=== PATIENT | female | born 1950 | race Caucasian/White ===

== ENCOUNTER 2017-07-19 16:15 | Emergency (ER) | payer OTHER ==
[2017-07-19 17:56] VITALS: BP 123/64; PULSE 71; TEMP 97.4; BMI 26.5
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
[2017-07-19] MEDS ORDERED: SODIUM CHLORIDE 0.9% 1000 ML INFUS.BAG IV ONE (18:29)
[2017-07-19] MEDS ORDERED: diazePAM 5 MG TABLET PO ONE (18:29)
[2017-07-19] MEDS ORDERED: ACETAMINOPHEN 1000 MG/100 ML VIAL (NON FORMULARY) IVPB ONE (18:29)
[2017-07-19] MEDS ORDERED: ACETAMINOPHEN INJECTION 100 ML IVPB ONE (18:48)
[2017-07-19] MEDS ORDERED: diazePAM 5 MG TABLET ONE (18:48)
[2017-07-19 19:44] LABS: BASO % 0.7 % (0-2.0); HEMATOCRIT 33.5 % (32.4-45.2); HEMOGLOBIN 11.4 GM/dl (10.7-15.3); LYMPH % 52.7 % (8-40); MCH 30.6 pg (25.7-33.7); MCHC 34.2 g/dl (32.0-36.0); MEAN CELL VOLUME 89.5 fl (80-96); MEAN PLT VOLUME 8.2 fl (7.5-11.1); MONO % 5.9 % (3.8-10.2); NEUT % 38.7 % (42.8-82.8); PLATELET COUNT 307 K/MM3 (134-434); RBC 3.75 M/mm3 (3.60-5.2); RDW 12.7 % (11.6-15.6); WHITE BLOOD COUNT 4.5 K/mm3 (4.0-10.8)
[2017-07-19 19:49] LABS: ALK PHOS 76 U/L (32-92); ANION GAP 5 (8-16); BILIRUBIN,TOTAL 0.4 mg/dl (0.2-1.0); BLOOD UREA NITROGEN 12 mg/dl (7-18); CHLORIDE 104 mmol/L (98-107); CO2 26 mmol/L (22-28); CREATININE 0.7 mg/dl (0.6-1.3); GLUCOSE,RANDOM 92 mg/dl (74-106); POTASSIUM 3.9 mmol/L (3.5-5.1); SGOT/AST 18 U/L (10-42); SGPT/ALT 13 U/L (10-40); SODIUM 135 mmol/L (136-145); TOT PROT 7.1 g/dl (6.4-8.3)
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
== END 2017-07-19 22:55 | disposition home or self-care (01) ==
LOC: FER 16:15
PROC: 3E0337Z Introduction of Electrolytic and Water Balance Substance into Peripheral Vein, Percutaneous Approach (ICD-10-PCS; principal; 2017-07-19)
PROC: 3E033NZ Introduction of Analgesics, Hypnotics, Sedatives into Peripheral Vein, Percutaneous Approach (ICD-10-PCS; 2017-07-19)
DX: M54.2 Cervicalgia (principal); V43.52XA Car driver injured in collision with other type car in traffic accident, initial encounter; Y93.89 Activity, other specified; Y92.410 Unspecified street and highway as the place of occurrence of the external cause; I10 Essential (primary) hypertension; E78.00 Pure hypercholesterolemia, unspecified
CPT/HCPCS: 36415; 70498-TC; 80053; 85025; 99281-25

== ENCOUNTER 2019-01-06 15:14 | Emergency (ER) | payer OTHER ==
[2019-01-06 15:30] VITALS: TEMP 97.7; BMI 27.4
--- NOTE | 2019-01-06 15:31 | PDOC ---
Rapid Medical Evaluation Time Seen by Provider: 01/06/19 15:24 Medical Evaluation: Allergies Allergy/AdvReac Type Severity Reaction Status Date / Time No Known Allergies Allergy Verified 07/19/17 17:51 01/06/19 15:25 Patient had brief in-person examination in triage cc: forgetful x 2 hours today. Patient states she cannot recall what happened 2 hours ago Reports pain to right side of head this am HPI: alert and oriented x 3 HEENT: no apparent injuries, EOMI Neuro: + strength all 4 limbs, follow commands orders: head ct, This patient will proceed to ed for further evaluation Discharge Disposition - Diagnosis Forgetfulness - Referrals - Patient Instructions - Post Discharge Activity
--- NOTE | 2019-01-06 16:57 | PDOC ---
History of Present Illness - General Chief Complaint: Altered Mental Status Stated Complaint: ALTERED MENTAL STATUS Time Seen by Provider: 01/06/19 15:24 History Source: Patient Exam Limitations: No Limitations Past History - Past Medical History Allergies/Adverse Reactions: Allergies Allergy/AdvReac Type Severity Reaction Status Date / Time No Known Allergies Allergy Verified 01/06/19 15:30 Home Medications: Ambulatory Orders NK [No Known Home Medication] 07/19/17 COPD: No HTN: Yes Hypercholesterolemia: Yes - Surgical History Abdominal Surgery: Yes (hysterectomy) - Suicide/Smoking/Psychosocial Hx Smoking History: Never smoked Have you smoked in the past 12 months: No Information on smoking cessation initiated: No Hx Alcohol Use: No Drug/Substance Use Hx: No Substance Use Type: None *Physical Exam - Vital Signs Last Vital Signs Temp Pulse Resp BP Pulse Ox 97.7 F 74 19 145/69 98 01/06/19 15:25 01/06/19 15:25 01/06/19 15:25 01/06/19 15:25 01/06/19 15:25 ED Treatment Course - LABORATORY CBC & Chemistry Diagram: 01/06/19 17:45 01/06/19 17:45 *DC/Admit/Observation/Transfer Diagnosis at time of Disposition: Forgetfulness, Acute stress disorder - Discharge Dispostion Disposition: HOME Condition at time of disposition: Improved Decision to Admit order: No - Referrals Referrals: Rika Cardona [Primary Care Provider] - Susan Love MD [Staff Physician] - - Patient Instructions Printed Discharge Instructions: DI for Transient Ischemic Attack, DI for Altered Mental Status Additional Instructions: You were seen in the ER today for altered mental status and confusion. The results of your labs and imaging today were normal. Please follow-up with your primary care doctor and neurology (Dr. Love) TOMORROW to discuss your visit and make sure your symptoms have improved. Please return to the ER if you have any worsening pain, development of fevers or chills, loss of consciousness, inability to tolerate food or fluids, or any other concerns. Dr. Love will call you tomorrow to set up an appointment in clinic. - Post Discharge Activity Forms/Work/School Notes: Back to Work
[2019-01-06 18:04] LABS: BASO % 1.5 % (0-2.0); EOS % 0.1 % (0-4.5); HEMATOCRIT 37.5 % (32.4-45.2); HEMOGLOBIN 12.3 GM/dL (10.7-15.3); LYMPH % 34.3 % (8-40); MCHC 32.9 g/dl (32.0-36.0); MEAN CELL VOLUME 91.3 fl (80-96); MEAN PLT VOLUME 8.3 fl (7.5-11.1); MONO % 3.7 % (3.8-10.2); NEUT % 60.4 % (42.8-82.8); PLATELET COUNT 343 K/MM3 (134-434); RDW 13.3 % (11.6-15.6); WHITE BLOOD COUNT 6.7 K/mm3 (4.0-10.0)
--- NOTE | 2019-01-06 18:15 | PDOC ---
Documentation entered by Arianna Wolff SCRIBE, acting as scribe for Anusha Fuentes MD. Anusha Fuentes MD: This documentation has been prepared by the New conner Xhesika, SCRIBE, under my direction and personally reviewed by me in its entirety. I confirm that the documentation accurately reflects all work, treatment, procedures, and medical decision making performed by me. Attending Attestation - Resident Resident Name: Shira Patterson - ED Attending Attestation I have performed the following: I have examined & evaluated the patient, The case was reviewed & discussed with the resident, I agree w/resident's findings & plan, Exceptions are as noted - HPI HPI: 01/06/19 18:11 The patient is a 68 year old female with a significant PMH of HTN and HLD who presents to the emergency department with 2 hours of confusion prior to her arrival. Patient states she was running errands and she suddenly became forgetful. Patient notes she is endorsing multiple stresses in her life and her daughter recently . The patient denies chest pain, shortness of breath, headache and dizziness. Denies fever, chills, nausea, vomit, diarrhea and constipation. Denies dysuria , frequency, urgency and hematuria. Allergies: NKDA Past surgical history: hysterectomy Social history: No reported alcohol, drug, or cigarette use. PCP: Rika Metz - Physicial Exam PE: GENERAL: Awake, alert, and fully oriented, in no acute distress HEAD: No signs of trauma EYES: PERRLA, EOMI, sclera anicteric, conjunctiva clear ENT: Auricles normal inspection, hearing grossly normal, nares patent, oropharynx clear without exudates. Moist mucosa NECK: Normal ROM, supple, no lymphadenopathy, JVD, or masses LUNGS: Breath sounds equal, clear to auscultation bilaterally. No wheezes, and no crackles HEART: Regular rate and rhythm, normal S1 and S2, no murmurs, rubs or gallops ABDOMEN: Soft, nontender, normoactive bowel sounds. No guarding, no rebound. No masses EXTREMITIES: Normal range of motion, no edema. No clubbing or cyanosis. No cords, erythema, or tenderness NEUROLOGICAL: Cranial nerves II through XII grossly intact. Normal speech, normal gait. Motor and sensation intact SKIN: Warm, dry, normal turgor, no rashes or lesions noted. NIH Stroke Scale - Last Known Well Date/Time & Onset Date Last Known Well: 01/06/19 - Initial Evaluation Level of consciousness: Alert Ask patient the month and their age: Answers both correctly Ask patient to open & close eyes; make fist and let go: Obeys both correctly Best gaze (horizontal eye movement): Normal Visual field testing: No visual field loss Facial paresis (Show teeth/raise eyebrows/close eyes tight): Normal symmetrical movement Motor Function: Left Arm: Normal Motor Function: Right Arm: Normal (extends arm 90 (or 45) degrees for 10 seconds without drift Motor Function: Left Leg: Normal (extends leg 30 degrees for 5 seconds without drift) Motor Function: Right Leg: Normal (extends leg 30 degrees for 5 seconds without drift) Limb Ataxia: No ataxia Sensory(Use pinprick test arms,legs,trunk,face/side to side): Normal Best language (Describe picture, name items, read sentences): No Aphasia Dysarthria (read several words): Normal articulation Extinction and Inattention: No abnormality - Total Score NIH Stroke Scale Score: 0
[2019-01-06 18:39] LABS: INR 0.98 (0.83-1.09); PROTHROMBIN TIME (PATIENT) 11.6 SEC (9.7-13.0)
[2019-01-06 18:43] LABS: URINE APPEARANCE CLEAR; URINE BILIRUBIN NEGATIVE (NEGATIVE); URINE COLOR YELLOW; URINE GLUCOSE (UA) NEGATIVE (NEGATIVE); URINE KETONE NEGATIVE (NEGATIVE); URINE LEUK ESTERASE NEGATIVE (NEGATIVE); URINE NITRITE NEGATIVE (NEGATIVE); URINE PROTEIN NEGATIVE (NEGATIVE); URINE UROBILINOGEN 0.2 mg/dL (0.2-1.0)
[2019-01-06 19:03] LABS: ALBUMIN 4.3 g/dl (3.4-5.0); BILIRUBIN,TOTAL 0.7 mg/dL (0.2-1); BLOOD UREA NITROGEN 8.7 mg/dL (7-18); CALCIUM 9.6 mg/dL (8.5-10.1); CREATININE 0.7 mg/dL (0.55-1.3); POTASSIUM 4.7 mmol/L (3.5-5.1); TOT PROT 7.7 g/dl (6.4-8.2)
[2019-01-06 19:49] VITALS: BP 153/78; PULSE 81
--- NOTE | 2019-01-07 09:29 | EKG ---
Test Reason : Blood Pressure : / mmHG Vent. Rate : 077 BPM Atrial Rate : 077 BPM P-R Int : 176 ms QRS Dur : 088 ms QT Int : 394 ms P-R-T Axes : 075 008 063 degrees QTc Int : 445 ms NORMAL SINUS RHYTHM NONSPECIFIC T WAVE ABNORMALITY ABNORMAL ECG Confirmed by Hunter Howard MD ([id number]) on 01/07/2019 9:29:09 AM Referred By: Confirmed By:Hunter Howard MD
== END 2019-01-06 19:51 | disposition home or self-care (01) ==
LOC: JER 15:14
DX: F43.0 Acute stress reaction (principal); I10 Essential (primary) hypertension; E78.5 Hyperlipidemia, unspecified; Z63.4 Disappearance and death of family member
CPT/HCPCS: 36415; 70450-TC; 80053; 80061; 81003; 83721; 85025; 85610; 85730; 86850; 86900; 86901; 87077; 87086; 93005; 93010; 99283-25

== ENCOUNTER 2019-05-15 17:06 | Emergency (ER) | payer BC, OTHER ==
[2019-05-15 17:24] VITALS: BP 151/66; PULSE 77; TEMP 98; BMI 28.3
--- NOTE | 2019-05-15 17:26 | PDOC ---
Rapid Medical Evaluation Chief Complaint: Irregular Heart Beat Time Seen by Provider: 05/15/19 17:22 Medical Evaluation: Allergies Allergy/AdvReac Type Severity Reaction Status Date / Time No Known Allergies Allergy Verified 01/06/19 15:30 05/15/19 17:23 I have performed a brief in-person evaluation of this patient. The patient presents with a chief complaint of: h/o HTN sent in from urgent care for evaluation of palpitations for a week. pt report [place] x 1 week Pertinent physical exam findings: HEART RRR. lungs CTAB in NAD I have ordered the following: EKG, cbc, cardiac profile The patient will proceed to the ED for further evaluation. Discharge Disposition - Diagnosis Palpitations - Discharge Dispostion Condition at time of disposition: Stable - Referrals - Patient Instructions - Post Discharge Activity
--- NOTE | 2019-05-15 17:49 | PDOC ---
History of Present Illness - General Chief Complaint: Irregular Heart Beat Stated Complaint: SENT BY DOCTOR Time Seen by Provider: 05/15/19 17:22 History Source: Patient - History of Present Illness Initial Comments: 05/15/19 17:47 68 year old female with palpitation on and off x 1 week x 1 week. denies chest pain, nausea, vomiting, diaphoresis, seen at urgent care today advised to come to the ER for further management. patient is currently asymptomatic PCP: [facility] PMHX: palpitations. hypertension, anxiety, Chiari I malformation, thyroid nodules 05/15/19 17:51 05/15/19 17:52 05/15/19 17:59 05/15/19 19:03 Past History - Past Medical History Allergies/Adverse Reactions: Allergies Allergy/AdvReac Type Severity Reaction Status Date / Time No Known Allergies Allergy Verified 05/15/19 17:24 Home Medications: Ambulatory Orders Losartan Potassium 25 mg PO DAILY 05/15/19 COPD: No HTN: Yes Hypercholesterolemia: Yes - Surgical History Abdominal Surgery: Yes (hysterectomy) - Psycho Social/Smoking Cessation Hx Smoking History: Never smoked Have you smoked in the past 12 months: No Hx Alcohol Use: No Drug/Substance Use Hx: No Substance Use Type: None *Physical Exam - Vital Signs Last Vital Signs Temp Pulse Resp BP Pulse Ox 98 F 77 18 151/66 98 05/15/19 17:20 05/15/19 17:20 05/15/19 17:20 05/15/19 17:20 05/15/19 17:20 - Physical Exam General Appearance: Yes: Appropriately Dressed Respiratory/Chest: positive: Lungs Clear, Normal Breath Sounds Cardiovascular: positive: Regular Rhythm, Regular Rate, Other (no carotid bruit) . negative: JVD Musculoskeletal: positive: Normal Inspection Extremity: positive: Normal Capillary Refill, Normal Inspection, Normal Range of Motion Integumentary: positive: Normal Color, Dry, Warm Neurologic: positive: Fully Oriented, Alert Heart Score/ECG Review - ECG Intrepretation Rhythm: Regular Rhythm Comment:: 05/15/19 19:03 NSR: 71 bpm ED Treatment Course - LABORATORY CBC & Chemistry Diagram: 05/15/19 17:40 05/15/19 17:40 - ADDITIONAL ORDERS Additional order review: Laboratory Results 05/15/19 05/15/19 17:40 17:40 PT with INR 11.00 INR 0.93 PTT (Actin FS) 36.8 H Sodium 140 Potassium 4.5 Chloride 110 H Carbon Dioxide 26 Anion Gap 5 L BUN 13.1 Creatinine 0.7 Est GFR (CKD-EPI)AfAm 104.64 Est GFR (CKD-EPI)NonAf 90.29 Random Glucose 90 Calcium 9.1 Total Bilirubin 0.4 AST 14 L ALT 22 Alkaline Phosphatase 115 Creatine Kinase 88 Troponin I < 0.02 Total Protein 7.7 Albumin 4.1 TSH 0.95 05/15/19 17:40 RBC 3.98 MCV 91.8 MCHC 33.1 RDW 13.0 MPV 8.4 Neutrophils % 52.6 Lymphocytes % 39.3 Monocytes % 5.4 Eosinophils % 1.5 D Basophils % 1.2 Medical Decision Making - Medical Decision Making 05/15/19 17:58 irregular heart rate: P: cbc cmp tsh ekg chest xray 05/15/19 21:12 outpatient cardiology follow up. strict return precautions reviewed with patient Discharge - Discharge Information Problems reviewed: Yes Clinical Impression/Diagnosis: Palpitations Condition: Stable Disposition: HOME - Follow up/Referral Referrals: Mike Stubbs MD [Staff Physician] - Call tomorrow Juan Hayward MD [Staff Physician] - Call tomorrow Victor Hugo Deal MD [Staff Physician] - Call tomorrow - Patient Discharge Instructions Patient Printed Discharge Instructions: DI for Arrhythmias Additional Instructions: it is very important that you follow up with a legal support assistant as soon as possible return to the ER for any worsening symptoms - Post Discharge Activity Work/Back to School Note: Back to Work
[2019-05-15 18:01] LABS: BASO % 1.2 % (0-2.0); EOS % 1.5 % (0-4.5); HEMATOCRIT 36.5 % (32.4-45.2); HEMOGLOBIN 12.1 GM/dL (10.7-15.3); LYMPH % 39.3 % (8-40); MCH 30.4 pg (25.7-33.7); MCHC 33.1 g/dl (32.0-36.0); MEAN CELL VOLUME 91.8 fl (80-96); MEAN PLT VOLUME 8.4 fl (7.5-11.1); MONO % 5.4 % (3.8-10.2); NEUT % 52.6 % (42.8-82.8); PLATELET COUNT 339 K/MM3 (134-434); RBC 3.98 M/mm3 (3.60-5.2); WHITE BLOOD COUNT 6.2 K/mm3 (4.0-10.0)
[2019-05-15 18:05] LABS: INR 0.93 (0.83-1.09)
[2019-05-15 18:07] LABS: ACTIVATED PTT 36.8 SECONDS (25.2-36.5)
[2019-05-15 18:26] LABS: ALBUMIN 4.1 g/dl (3.4-5.0); ALK PHOS 115 U/L (45-117); ANION GAP 5 MMOL/L (8-16); BILIRUBIN,TOTAL 0.4 mg/dL (0.2-1); BLOOD UREA NITROGEN 13.1 mg/dL (7-18); CALCIUM 9.1 mg/dL (8.5-10.1); CHLORIDE 110 mmol/L (98-107); CO2 26 mmol/L (21-32); CREATININE 0.7 mg/dL (0.55-1.3); GLUCOSE,RANDOM 90 mg/dL (74-106); POTASSIUM 4.5 mmol/L (3.5-5.1); SGOT/AST 14 U/L (15-37); SGPT/ALT 22 U/L (13-61); SODIUM 140 mmol/L (136-145); TOT PROT 7.7 g/dl (6.4-8.2)
--- NOTE | 2019-05-16 13:22 | EKG ---
Test Reason : Blood Pressure : / mmHG Vent. Rate : 071 BPM Atrial Rate : 071 BPM P-R Int : 172 ms QRS Dur : 090 ms QT Int : 392 ms P-R-T Axes : -10 016 001 degrees QTc Int : 425 ms NORMAL SINUS RHYTHM NORMAL ECG WHEN COMPARED WITH ECG OF 06-JAN-2019 18:09, T WAVE INVERSION NOW EVIDENT IN INFERIOR LEADS NONSPECIFIC T WAVE ABNORMALITY NO LONGER EVIDENT IN LATERAL LEADS Confirmed by ERIN BROOKS, PJ ([id number]) on 05/16/2019 1:22:39 PM Referred By: Confirmed By:PJ KHAN MD
== END 2019-05-15 19:46 | disposition home or self-care (01) ==
LOC: JER 17:06
DX: R00.2 Palpitations (principal); I10 Essential (primary) hypertension; F41.9 Anxiety disorder, unspecified; G93.5 Compression of brain; E04.1 Nontoxic single thyroid nodule
CPT/HCPCS: 36415; 71046-TC-FY; 80053; 82550; 84443; 84484; 85025; 85610; 85730; 93005; 93010; 99284-25